=== PATIENT | female | born 1990 | race Two or more races ===

== ENCOUNTER 2018-04-13 09:48 | Inpatient (IN) | payer OTHER ==
[2018-04-13] MEDS ORDERED: BUTORPHANOL TARTRATE 1 MG/ML VIAL IVPB ONE (10:36)
[2018-04-13] MEDS ORDERED: PROMETHAZINE HCL 25 MG/1 ML VIAL IVPB ONE (10:36)
[2018-04-13] MEDS ORDERED: SODIUM PHOSPHATE/NA BIPHOS 133 ML ENEMA PR ONE (10:40)
[2018-04-13] MEDS ORDERED: DINOPROSTONE 10 MG VAGINAL SUPPOSITORY VG ONE (10:45)
[2018-04-13] MEDS ORDERED: DEXTROSE 5%-LACTATED RINGERS 1,000 ML IV SCH (10:45)
--- NOTE | 2018-04-13 10:50 | HP ---
Past Medical History - Primary Care Physician PCP:: Verónica Quiñones - Admission Chief Complaint: 27 Yrs , 40.6 weeks admitted for induction of labor History of Present Illness: PNC at 2, [facility] 17 lbs wt gain Panel : 11/05/17 pap radha, gc/ct neg , Hiv neg, Cf neg, hbsag neg, sickle neg, hgb a1a2, , A Pos, lead neg, rpr nr, varicella immune, rubella immune 12/26/17 1 hr gtt 158, rpr nr, Quantiferon pos 01/02/2018 3 hr gtt 76/185/184/132 03/13/18 h/h 13.0/37.9, plt 207, gc/ct neg , hiv neg earliest sono on 10/02/17 13.2 wks --edc 04/07/18 10/30/17 17.2 wks edc confirmed as 04/07/18 mfm sono done on 01/10/18 26.2 wks assigned edc as 04/12/18 , 03/07/18 34 wks 04/09/18 39.4 wks, , grant 10.1, efw 7'8', (38%tile) , post placenta, vx , bpp8/8. 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 ) ...Spon : 1 ...LMP: 07/04/17 ... Weeks Gestation by Dates: 40.3 ...EDC by Dates: 04/10/18 ...EDC by Sono: 04/07/18 (40.6 weeks by sono ) Infectious Disease: Yes: Other (quantiferon positive). No: AIDS, HIV, STD's Psych: No: Addictions, Anxiety, Bipolar, Depression, Panic, Psychosis, Schizophrenia, Other Endocrine: Yes: Other (none known) - Past Surgical History Past Surgical History: Yes: None Hx Myomectomy: No Hx Transabdominal Cerclage: No - Smoking History Have you smoked in the past 12 months: No - Alcohol/Substance Use Hx Alcohol Use: No History of Substance Use: reports: None - Social History History of Recent Travel: No Home Medications - Allergies Allergies/Adverse Reactions: Allergies Allergy/AdvReac Type Severity Reaction Status Date / Time No Known Allergies Allergy Verified 04/13/18 10:36 - Home Medications Home Medications: Ambulatory Orders Vitamins (Sjr) - 1 tab PO DAILY 04/13/18 Physical Exam - Maternity Vital Signs: Selected Entries 04/13/18 10:46 Temperature 99.4 F Pulse Rate 91 H Respiratory 20 Rate Blood Pressure 135/69 Weight 197 lb Constitutional: Yes: Well Nourished, Obese Eyes: Yes: WNL HENT: Yes: WNL, Normocephalic Neck: Yes: WNL, Trachea Midline Cardiovascular: Yes: WNL Lungs: Clear to auscultation Breast(s): Yes: WNL - Abdominal Exam/OB Fundal Height: 40 Number of Fetuses: Single Presentation: Vertex Contractions: No Monitor Mode: External Heart Rate (range): 130-140 Heart Rate Location: [facility] Category: I Accelerations: Uniform Decelerations: None - Vaginal Exam/OB Vaginal Bleediing: No Speculum Exam: No Dilatation (cm): 1 Effacement (%): 60 Amniotic Membrane Status: Intact Presentation: Vertex/Position Station: -3 - Physical Exam Musculoskeletal: Yes: WNL Extremities: Yes: WNL. No: Calf Tenderness Edema: Yes Edema: LLE: 1+, RLE: 1+ Integumentary: Yes: WNL Deep Tendon Reflex Grade: Normal +2 ...Motor Strength: WNL Psychiatric: Yes: WNL, Alert, Oriented - Labs Lab Results: Laboratory Tests 04/13/18 04/13/18 04/13/18 11:25 11:25 11:25 WBC 11.3 H Hgb 13.6 Hct 39.8 MCV 82.1 Plt Count 224 Neutrophils % 68.1 Lymphocytes % 22.1 Monocytes % 8.1 PT with INR 10.70 INR 0.91 PTT (Actin FS) 24.6 L Sodium 141 Potassium 4.0 Chloride 110 H Carbon Dioxide 22 BUN 10 Creatinine 0.6 Random Glucose 70 L Calcium 8.7 RPR Titer Blood Type Antibody Screen 04/13/18 04/13/18 11:25 11:25 WBC Hgb Hct MCV Plt Count Neutrophils % Lymphocytes % Monocytes % PT with INR INR PTT (Actin FS) Sodium Potassium Chloride Carbon Dioxide BUN Creatinine Random Glucose Calcium RPR Titer Nonreactive Blood Type A POSITIVE Antibody Screen Negative Problem List - Problems (1) Post-term , 40-42 weeks of gestation Code(s): O48.0 - POST-TERM (2) Elective induction of labor planned Code(s): CAM1693 - Assessment/Plan 27 yrs , 40.6 weeks, gbs neg , admitted for induction of labor Plan Cervidil induction : 11.20 AM cervidil inserted vaginal delivery trial
[2018-04-13 10:56] VITALS: BMI 34.9
[2018-04-13 11:40] LABS: BASO % 0.3 % (0-2.0); EOS % 1.4 % (0-4.5); HEMATOCRIT 39.8 % (32.4-45.2); HEMOGLOBIN 13.6 GM/dL (10.7-15.3); LYMPH % 22.1 % (8-40); MEAN CELL VOLUME 82.1 fl (80-96); MEAN PLT VOLUME 8.6 fl (7.5-11.1); MONO % 8.1 % (3.8-10.2); NEUT % 68.1 % (42.8-82.8); PLATELET COUNT 224 K/MM3 (134-434); RBC 4.85 M/mm3 (3.60-5.2); RDW 14.9 % (11.6-15.6); WHITE BLOOD COUNT 11.3 K/mm3 (4.0-10.0)
[2018-04-13 11:53] LABS: INR 0.91 (0.83-1.09); PROTHROMBIN TIME (PATIENT) 10.7 SEC (9.7-13.0)
[2018-04-13 11:56] LABS: ACTIVATED PTT 24.6 SECONDS (25.2-36.5)
[2018-04-13 12:11] LABS: ANION GAP 10 MMOL/L (8-16); BLOOD UREA NITROGEN 10 mg/dL (7-18); CALCIUM 8.7 mg/dL (8.5-10.1); CHLORIDE 110 mmol/L (98-107); CO2 22 mmol/L (21-32); CREATININE 0.6 mg/dL (0.55-1.3); GLUCOSE,RANDOM 70 mg/dL (74-106); SODIUM 141 mmol/L (136-145)
[2018-04-13] MEDS ORDERED: LIDOCAINE HCL 1% PRESERVATIVE FREE - 30ML VIAL ONE (14:36)
[2018-04-13] MEDS ORDERED: OXYTOCIN 20 UNITS in 0.9% NS 40 UNIT/2,000 ML INFUS.BAG IV ONE (14:36)
--- NOTE | 2018-04-13 15:04 | PN ---
Progress Note, Labor Vaginal Exam #1 Labor Exam Date: 04/13/18 Labor Exam Time: 13:55 Heart Rate (range): 130 Dilatation: 5 Effacement (%): 80 Amniotic Membrane Status: Ruptured (srom at 1.35 PM) Station: -1 Remarks: fhr cat-1 uc 1-3 min Vaginal Exam #2 Labor Exam Date: 04/13/18 Labor Exam Time: 14:30 Heart Rate (range): 130-140 Dilatation: 7 Effacement (%): 100 Amniotic Membrane Status: Ruptured Presentation: Vertex/Position Station: 0 Remarks: mild variable , cat-2 uc 1-2 min Selected Entries 04/13/18 14:00 Temperature 98.7 F Pulse Rate 76 Blood Pressure 139/71 Vaginal Exam #3 Labor Exam Date: 04/13/18 Labor Exam Time: 15:10 Heart Rate (range): 120-100 Dilatation: 10 Effacement (%): 100 Amniotic Membrane Status: Ruptured Presentation: Vertex/Position Station: +2 Remarks: fhr cat-2 uc 1-2 min pt pushing
[2018-04-13] MEDS ORDERED: BISACODYL 10 MG SUPP.RECT RC PRN (15:55)
[2018-04-13] MEDS ORDERED: BENZOCAINE 28 GM HEMORRHOIDAL OINTMENT TP PRN (15:55)
[2018-04-13] MEDS ORDERED: BENZOCAINE 20% 57 GM BOTTLE TP PRN (15:55)
[2018-04-13] MEDS ORDERED: METHYLERGONOVINE MALEATE 0.2 MG/1 ML AMP IM PRN (15:55)
[2018-04-13] MEDS ORDERED: WITCH HAZEL 50% (TUCKS) 40 PAD/JAR PAD TP PRN (15:55)
[2018-04-13] MEDS ORDERED: OXYTOCIN 20 UNITS in 0.9% NS 20 UNIT/1,000 ML INFUS.BAG IV SCH (16:00)
[2018-04-13] MEDS: ACETAMINOPHEN 325 MG TABLET (FP) PO PRN ×2 (16:05→20:25)
[2018-04-13] MEDS: IBUPROFEN 600 MG TABLET (FP) PO PRN ×2 (16:05→20:19)
[2018-04-13] MEDS ORDERED: IBUPROFEN 600 MG TABLET (FP) PO ONE (16:06)
[2018-04-13] MEDS ORDERED: ACETAMINOPHEN 325 MG TABLET (FP) ONE (16:06)
--- NOTE | 2018-04-13 16:11 | PN ---
Delivery - Delivery Vaginal Delivery: No Problems, Spontaneous (baby delievered Vx presentation , ISABELLA Position ,immediate oral & nasal suction was done , shoulders delievered without problem. placenta & membranes delievered completely. 2nd degree laceration was noted , sutured with chr catgut #2/0 under local anesthesia . [place] mucosa & sphincter was intact. bladder cathetrized & emptied . 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 gbs neg pnc at [address] cervidil inserted 04/13/18 -at 11.20 am , pt went into labor inrapartum course uneventful
[2018-04-13] MEDS: FERROUS SO4 325 MG TABLET (FP) PO SCH (17:29)
--- NOTE | 2018-04-14 05:42 | PN ---
Post Progress Note - Subjective Subjective: c/o perineal soreness Post Day: 1 Type of Delivery: Vital Signs: Vital Signs Temperature 98.7 F 04/14/18 02:00 Pulse Rate 71 04/14/18 02:00 Respiratory Rate 18 04/14/18 02:00 Blood Pressure 137/76 04/14/18 02:00 O2 Sat by Pulse Oximetry (%) Breast Exam: Yes: Soft, Other (BF ). No: Engorged Uterus: Yes: Fundus Firm, Fundus below umbilicus, Non-tender Lochia: Yes: Rubra Lochia, amount: Moderate Extremities: Yes: Calves non-tender Perineum: Yes: Laceration (healing ) Activity: Ambulating - Labs Labs: CBC WBC 11.3 K/mm3 (4.0-10.0) H 04/13/18 11:25 RBC 4.85 M/mm3 (3.60-5.2) 04/13/18 11:25 Hgb 13.6 GM/dL (10.7-15.3) 04/13/18 11:25 Hct 39.8 % (32.4-45.2) 04/13/18 11:25 MCV 82.1 fl (80-96) 04/13/18 11:25 MCH 28.0 pg (25.7-33.7) 04/13/18 11:25 MCHC 34.0 g/dl (32.0-36.0) 04/13/18 11:25 RDW 14.9 % (11.6-15.6) 04/13/18 11:25 Plt Count 224 K/MM3 (134-434) 04/13/18 11:25 MPV 8.6 fl (7.5-11.1) 04/13/18 11:25 Absolute Neuts (auto) 7.7 K/mm3 (1.5-8.0) 04/13/18 11:25 Neutrophils % 68.1 % (42.8-82.8) 04/13/18 11:25 Lymphocytes % 22.1 % (8-40) 04/13/18 11:25 Monocytes % 8.1 % (3.8-10.2) 04/13/18 11:25 Eosinophils % 1.4 % (0-4.5) 04/13/18 11:25 Basophils % 0.3 % (0-2.0) 04/13/18 11:25 Nucleated RBC % 0 % (0-0) 04/13/18 11:25 Problem List - Problems (1) Post-term , 40-42 weeks of gestation Code(s): O48.0 - POST-TERM (2) Elective induction of labor planned Code(s): JUX2488 - (3) Normal vaginal delivery Code(s): O80 - ENCOUNTER FOR FULL-TERM UNCOMPLICATED DELIVERY (4) Second degree perineal laceration during delivery, delivered Code(s): O70.1 - SECOND DEGREE PERINEAL LACERATION DURING DELIVERY (5) Encounter for care after hospital delivery Code(s): Z39.2 - ENCOUNTER FOR ROUTINE FOLLOW-UP Assessment/Plan stable pp repeat cbc today. discharge tomorrow.
[2018-04-14 08:14] LABS: BASO % 0.3 % (0-2.0); EOS % 0.5 % (0-4.5); HEMATOCRIT 34.2 % (32.4-45.2); HEMOGLOBIN 11.8 GM/dL (10.7-15.3); LYMPH % 19.3 % (8-40); MCH 28.3 pg (25.7-33.7); MCHC 34.4 g/dl (32.0-36.0); MEAN CELL VOLUME 82.3 fl (80-96); MEAN PLT VOLUME 8.4 fl (7.5-11.1); MONO % 7.1 % (3.8-10.2); NEUT % 72.8 % (42.8-82.8); PLATELET COUNT 196 K/MM3 (134-434); RBC 4.16 M/mm3 (3.60-5.2); RDW 14.9 % (11.6-15.6); WHITE BLOOD COUNT 12.7 K/mm3 (4.0-10.0)
[2018-04-14] MEDS: ACETAMINOPHEN 325 MG TABLET (FP) PO PRN (08:34)
[2018-04-14] MEDS: IBUPROFEN 600 MG TABLET (FP) PO PRN (08:34)
[2018-04-14] MEDS: FERROUS SO4 325 MG TABLET (FP) PO SCH ×2 (08:34→17:24)
[2018-04-14] MEDS: PRENATAL VITAMINS W/ FOLIC ACID TABLET (FP) PO SCH (09:54)
[2018-04-14] MEDS ORDERED: DIPHTH,PERTUSS(ACELL),TET 0.5 ML DISP.SYRIN IM ONE (10:00)
[2018-04-14] MEDS ORDERED: FLU VACCINE QUAD 60 MCG/0.5 ML (MDV 18-19) IM ONE (10:00)
[2018-04-14] MEDS: oxyCODONE HCL 5 MG TABLET PO PRN (19:17)
[2018-04-14] MEDS ORDERED: SENNOSIDES/DOCUSATE COMBO (SENNA PLUS) TABLET (UD) PO PRN (22:00)
[2018-04-15] MEDS: ACETAMINOPHEN 325 MG TABLET (FP) PO PRN (01:02)
[2018-04-15] MEDS: IBUPROFEN 600 MG TABLET (FP) PO PRN (01:02)
--- NOTE | 2018-04-15 06:28 | DS ---
Physical Exam-CONSUMER LENDING MANAGER Vital Signs: Vital Signs Temperature 98.6 F 04/14/18 22:00 Pulse Rate 86 04/14/18 22:00 Respiratory Rate 18 04/14/18 22:00 Blood Pressure 118/68 04/14/18 22:00 O2 Sat by Pulse Oximetry (%) Constitutional: Yes: Well Nourished, Obese Eyes: Yes: WNL HENT: Yes: WNL Neck: Yes: WNL Cardiovascular: Yes: WNL Respiratory: Yes: WNL Gastrointestinal: Yes: WNL ...Rectal Exam: Yes: WNL Renal/: Yes: WNL ....Post : Yes: Uterus firm, Moderate lochia rubra (perineum intact, perineal laceration 2nd degree repair , perineal soreness less.) Breast(s): Yes: WNL, Other (not engorged , BF) Musculoskeletal: Yes: WNL Extremities: Yes: WNL. No: Calf Tenderness Edema: LLE: 1+, RLE: 1+ Integumentary: Yes: WNL Neurological: Yes: WNL ...Motor Strength: WNL Psychiatric: Yes: WNL, Alert, Oriented Labs: CBC, BMP 04/14/18 07:30 04/13/18 11:25 Delivery - Delivery Vaginal Delivery: No Problems, Spontaneous (baby delievered Vx presentation , ISABELLA Position ,immediate oral & nasal suction was done , shoulders delievered without problem. placenta & membranes delievered completely. 2nd degree laceration was noted , sutured with chr catgut #2/0 under local anesthesia . [place] mucosa & sphincter was intact. bladder cathetrized & emptied . prophylactic im Methergine 0.25 mg im was given) Type of Anesthesia: Local EBL (cc): 350 Delivery, Single - Stages of Labor Date 1st Stage Initiatied: 04/13/18 Time 1st Stage Initiated: 13:20 Date 2nd Stage Initiated: 04/13/18 Time 2nd Stage Initiated: 15:10 Date of Delivery: 04/13/18 Time of Delivery: 15:15 Time Placenta Delivered: 15:25 Placenta: Yes: Spontaneous, Curettage - Condition of Infant Health And Wellness Manager/Teacher Lip Reading Present: No Infant Gender: Male Weight: 7 lb 8 oz Position: Right, OA Total Hours ROM (Hrs/Mins): 1hr 40min - 1 Minute Total Score: 9 5 Minutes Total Score: 9 - [place] Feeding Plan Initial Plan: Exclusive throughout hospitalization Remarks - Remarks Remarks: 27 yrs 40.6 weeks admitted for induction of labor. gbs neg pnc at 2 [facility] . cervidil inserted 04/13/18 -at 11.20 am , pt went into labor inrapartum course uneventful post course stable, uneventful discharge today Discharge Summary Reason For Visit: INDUCTION OF LABOR Current Active Problems Elective induction of labor planned (Acute) Encounter for care after hospital delivery (Acute) Normal vaginal delivery (Acute) Post-term , 40-42 weeks of gestation (Acute) Second degree perineal laceration during delivery, delivered (Acute) Condition: Stable - Instructions Diet, Activity, Other Instructions: Post Instructions DIET: Continue good diet high in protein, calcium, and iron rich foods. Drink at least eight (8) glasses of water daily in addition to other fluids. ct Regular diet MEDICATIONS: Continue vitamins and iron as previously directed. Motrin and Tylenol may be taken for minor discomfort. ACTIVITY: Mild to moderate exercise may be started in two (2) weeks. Take frequent rest periods. Resume normal activity after six (6) week check up. WOUND CARE OF OPERATIVE SITE: Continue use of perineal bottle until vaginal discharge stops. Keep area clean. Shower daily. Keep abdominal wound dry. Report any drainage or redness to physician. Tub baths, tampons and douches are not permitted for [address] Breast feeding & or Bottle feeding BREAST CARE: (For those that are not ): If engorgement occurs: Wear tight fitting bra. Take Tylenol or Motrin for pain. Apply cold packs (ice in bags to each breast ) FAMILY PLANNING: There are many control alternatives to pursue and they should be discussed at your first office visit. You may resume sexual activity after your six (6) week check up. (Remember, breast feeding is not a contraceptive) NEXT PHYSICIAN APPOINTMENT: Be certain to call for a six (6) week appointment, unless otherwise directed. Call Clinic or got to Emergency Dept if you have any of the following: Heavy vaginal bleeding Painful urination Leg pain Unusual odor noted to vaginal bleeding High fever Red streaking noted on breast return to clinic in 6 weeks for check. call [facility] appointment. [phone] Referrals: Verónica Quiñones MD [Staff Physician] - Disposition: HOME - Home Medications Comprehensive Discharge Medication List: Ambulatory Orders Vitamins (Sjr) - 1 tab PO DAILY 04/13/18 Acetaminophen [Tylenol .Regular Strength -] 650 mg PO Q3H PRN tablet 04/14/18 Benzocaine [Americaine 20% [place] -] 1 spray TP PRN PRN bottle 04/14/18 Ferrous Sulfate [Feosol] 325 mg PO BIDWM tab 04/14/18 Ibuprofen [Motrin -] 600 mg PO Q4H PRN #20 tablet 04/14/18 Vitamins (Sjr) - 1 tab PO DAILY #0 tablet 04/14/18 Sennosides/Docusate Sodium [Pericolace -] 2 tablet PO HS PRN #60 tablet
[2018-04-15] MEDS: FERROUS SO4 325 MG TABLET (FP) PO SCH (08:13)
[2018-04-15] MEDS: oxyCODONE HCL 5 MG TABLET PO PRN (08:13)
[2018-04-15 09:08] VITALS: BP 114/68; PULSE 68; TEMP 98.3
[2018-04-15] MEDS: PRENATAL VITAMINS W/ FOLIC ACID TABLET (FP) PO SCH (09:37)
== END 2018-04-15 13:40 | disposition home or self-care (01) | DRG 560 ==
LOC: JLDR 09:48 → J3W 16:58
PROVIDERS: ADMIT Obstetrics & Gynecology; ATTEND Obstetrics & Gynecology
PROC: 0KQM0ZZ Repair Perineum Muscle, Open Approach (ICD-10-PCS; principal; 2018-04-13)
PROC: 10E0XZZ Delivery of Products of Conception, External Approach (ICD-10-PCS; 2018-04-13)
PROC: 3E0P7VZ Introduction of Hormone into Female Reproductive, Via Natural or Artificial Opening (ICD-10-PCS; 2018-04-13)
DX: O48.0 Post-term pregnancy (principal); Z3A.40 40 weeks gestation of pregnancy; O70.1 Second degree perineal laceration during delivery; Z37.0 Single live birth
CPT/HCPCS: 36415; 59409; 71046-TC-FY; 80048; 85025; 85610; 85730; 86593; 86850; 86900; 86901; 90686; 90715; G0008